=== PATIENT | female | born 1940 | race Caucasian/White ===

== ENCOUNTER 2024-04-07 13:29 | Emergency (ER) | payer BC ==
[2024-04-07 13:35] VITALS: BP 108/70; PULSE 88; RESP 17; TEMP 98.6; BMI 25.0
== END 2024-04-07 15:25 | disposition home or self-care (01) ==
LOC: FER 13:29
PROC: 0XQ5XZZ Repair Left Axilla, External Approach (ICD-10-PCS; principal; 2024-04-07)
DX: L02.412 Cutaneous abscess of left axilla (principal); L72.0 Epidermal cyst
CPT/HCPCS: 99283-25